=== PATIENT | female | born 1975 | race Caucasian/White ===

== ENCOUNTER 2021-10-08 08:19 | Outpatient (CLI) | payer MEDICAID, SELFPAY ==
--- NOTE | 2021-10-08 08:27 | FL_ITS ---
WS: [id number] Barium swallow and esophagram, 10/08/2021 Clinical Data: DYSPHAGIA Comparison: None. Fluoroscopy time: .8 minutes. Findings: The patient swallowed the thick and thin barium, and it flowed through the hypopharynx without hesita tion. No stricture, mass, polyp or erosion was seen. There was no prevertebral soft tissue swelling T he barium entered the esophagus and there was normal motility throughout. No hiatal hernia, reflux, s tricture, polyp, mass, erosion or ulcer was noted. No reflux was present. FL/FL barium swallow [id number] Impression: Normal esophagram.
--- NOTE | 2021-10-08 08:27 | CT_ITS ---
WS: [id number] CT NECK WITH CONTRAST HISTORY: DYSPHAGIA TECHNIQUE: Contiguous 5 mm axial images are performed through the neck without intravenous contrast. Sagittal and coronal reformats are also submitted. All CT scans at [facility] use at least on e of these dose optimization techniques: automated exposure control; mA and/or kV adjustment per [place] ent size (includes targeted exams where dose is matched to clinical indication); or iterative reconst ruction. CONTRAST: CONTRAST: None DLP: 507.03 mGy.cm COMPARISON: None available. There is marked thickening and nodularity extending along the epiglottis involving the free edge and the glossoepiglottic fold. Slightly greater nodularity on the RIGHT. Nodularity and thickening extend s into the aryepiglottic folds. There is some very mild nodularity extending to the tongue base and involving the lingular tonsils. Thyroid gland and salivary glands are normally enhancing with no masses. Bilateral cervical chain lymph nodes are very slightly prominent but the fatty nathan is normal. Level IIa lymph node measures 9 mm on the RIGHT. There is no stranding involving the lymph nodes. Not signi ficantly enlarged. Visualized portions of the skull base demonstrate no abnormalities. Orbits and globes are within norm al limits. No soft tissue masses. Visualized paranasal sinuses and mastoid air cells are normal. Lung apices are clear. CT/CT neck wo con [id number] IMPRESSION: 1. This examination was performed without IV contrast. 2. There is marked thickening and nodularity within the larynx involving the e piglottis, free edge and glossoepiglottic fold, with extension into the aryepi glottic folds. Nodularity and thickening is slightly greater on the RIGHT. Ther e is also very slight nodularity involving the palatine tonsils. Recommend dire ct visualization of if this has not been performed. Neoplasm or polyps should b e considered. 3. No lymphadenopathy identified.
--- NOTE | 2021-10-08 08:27 | XR_ITS ---
WS: [id number] CHEST 2 VIEWS HISTORY: DYSPHAGIA COMPARISON: None available. Lungs: Clear with no abnormality. No pleural effusion or pneumothorax. Cardiac size: Normal. Mediastinum/Aorta: Normal mediastinum. Bones: Normal. XR/XR chest 2V* [id number] IMPRESSION: Normal chest.
--- NOTE | 2021-10-08 09:24 | ECG_ITS ---
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 Measurements Intervals [place] Rate: 76 P: 49 VT: 153 QRS: 28 QRSD: 97 T: 48 QT: 372 QTc: 420 Interpretive Statements SINUS RHYTHM NONSPECIFIC T-WAVE ABNORMALITY INTERPRETATION BASED ON A DEFAULT AGE OF 40 YEARS No previous ECG available for comparison Electronically Signed On 10-08-2021 20:48:52 WAIVER ANALYST by Kain Mosqueda M.D. [email or web address] Appsmercy [email or web address]. joseph warren [email or web address] [id number]
== END 2021-10-08 08:20 | disposition home or self-care (01) ==
PROVIDERS: PCP Nurse Practitioner Family; Visit Provider Specialist
DX: D37.09 Neoplasm of uncertain behavior of other specified sites of the oral cavity (principal); R13.10 Dysphagia, unspecified
CPT/HCPCS: 70490; 71046; 74220; 93005

== ENCOUNTER 2022-02-18 09:01 | Outpatient (CLI) | payer MEDICAID, SELFPAY ==
--- NOTE | 2022-02-18 09:41 | N.ONRAD NP_ITS ---
Radiation Oncology Consultation Patient Name: Dina Mcdaniel Date of : 1975 Date of Service: 02/18/2022 Attending Physician: Igor Amos M.D. Dina Mcdaniel was seen in consultation this morning at the request of Nahun James M.D. for evaluation regarding adjuvant head and neck radiotherapy for the management of a recently diagnosed supraglottic laryngeal carcinoma. The patient was evaluated for dysphagia in September 2021. A flexible laryngoscopy visualize an exophytic lesion of the laryngeal surface of the epiglottis. A diagnostic laryngoscopy was completed on October 29, 2021 by Nahun Chase M.D. An epiglottic mass was described involving the laryngeal surface of the epiglottis with extension onto the tongue base. The true vocal cords were mobile. A biopsy of the epiglottic abnormality diagnosed a poorly differentiated, squamous cell carcinoma with basaloid features. She was referred to [facility] in [place], [place] for further management. A PET scan obtained on January 09, 2022 identified a 1.8 cm x 1.5 cm x 2.3 cm right supraglottic laryngeal mass (SUV 20.3) and bilateral level II cervical lymph nodes. An open supraglottic laryngectomy with bilateral selective neck dissections and tracheostomy were performed on January 13, 2022 by Nayan Kam M.D. The pathology report (requ[facility] from the outside [facility] described a 2.5 cm x 1.5 cm poorly differentiated, nonkeratinizing, squamous cell carcinoma epiglottis with extension to the area epiglottic folds and false vocal cords. The closest surgical margin measured 1.2 mm from the piriform sinus. A total of 103 lymph nodes were harvested. No metastases were reported. The patient was referred for adjuvant head and neck radiotherapy. I discussed with Ms. Mcdaniel the AJCC pathological stage II (T2N0) of the supraglottic larynx associated with her diagnosis and the National Comprehensive Cancer Network Guidelines for adjuvant radiotherapy in patients with newly resected tumors and adverse features (i.e. positive/close margins, extranodal extension, lymphovascular invasion/perineural, pN2/pN3, or advanced tumors; pT3-pT4). I also reviewed the classic studies, - the EORTC 01136 and RTOG 9501 trials - that established this recommendation. The EORTC investigation demonstrated an overall survival advantage and improved locoregional control in the combined modality arm, while the RTOG study documented improved disease-free survival and locoregional control in a subgroup of patients with positive margins and extranodal extension. I reviewed the potential toxicities of head and neck radiotherapy. The patient has verbalized understanding and has decided forego treatment. Signed by: Dr. Igor Amos 02/18/2022 9:39:24 AM
== END 2022-02-18 09:02 | disposition home or self-care (01) ==
PROVIDERS: PCP Nurse Practitioner Family; Visit Provider Radiology Radiation Oncology
DX: C32.1 Malignant neoplasm of supraglottis (principal)
CPT/HCPCS: 99205

== ENCOUNTER → 2024-08-28 08:40 | Outpatient (BNVA) | payer MEDICAID, SELFPAY | PROVIDERS: PCP Nurse Practitioner Family; Visit Provider Specialist | DX: M79.641 Pain in right hand (principal); M25.531 Pain in right wrist; Z87.81 Personal history of (healed) traumatic fracture; M87.037 Idiopathic aseptic necrosis of right carpus | CPT/HCPCS: 73110; 73130; 99204 ==